=== PATIENT | male | born 1985 | race Caucasian/White ===

== ENCOUNTER 2017-03-02 12:54 | Emergency (ER) | payer SELFPAY | END 2017-03-02 15:50 | disposition home or self-care (01) | LOC: FER 12:54 | DX: S61.212A Laceration without foreign body of right middle finger without damage to nail, initial encounter (principal); Z23 Encounter for immunization; W23.0XXA Caught, crushed, jammed, or pinched between moving objects, initial encounter; Y99.0 Civilian activity done for income or pay | CPT/HCPCS: 73140; 90471; 90715 ==